=== PATIENT | female | born 1975 | race Caucasian/White ===

== ENCOUNTER 2023-04-07 16:36 | Emergency (ER) | payer BC, SELFPAY ==
[2023-04-07 16:43] VITALS: BP 142/85; PULSE 96; RESP 18; TEMP 36.3; O2SAT 100; BMI 29.2
--- NOTE | 2023-04-07 17:15 | ED.GENADULT ---
HPI - General Adult General Chief complaint: Flank Pain Stated complaint: kidney stone Time Seen by Provider: 04/07/23 16:45 History of Present Illness HPI narrative: Patient states she has LLQ and Left flank pain starting at about 1615 today. Patient has had recent ultra sound showing kidney stones being present. States she has had no issues urinating 47 year old woman presenting to the emergency department complaint of left flank pain and a burning new left inguinal area pain. Not particularly exacerbated with movement. Notes 1st diagnosis of renal stones was in 2020. In my questioning it seems that she is indicating that she has had a 4 mm and a 6 mm ureteral stone present since that time. Unclear when last CT imaging was done. Had brief fever couple days ago. Began to have left flank flank but then left low burning pelvic pain started later this afternoon. She does present with some ultrasounds that were apparently ordered during a regular ?checkup? to evaluate right flank pain. Reviewing these ultrasound work sheets and radiology over-read these note bilateral renal caliceal tip calculi noted at 0.4 cm and 0.6 cm on the left. These were done on 03/21/23 Tends to treat with essence oils. Just wants to get checked out now is heading to [place] in a week. Related Data Home Medications Medication Instructions Recorded Confirmed tamsulosin 0.4 mg capsule (Flomax) 0.4 mg PO .prn 10/02/22 10/02/22 Allergies Allergy/AdvReac Type Severity Reaction Status Date / Time Tetracyclines Allergy Intermediate Hives Verified 10/02/22 09:19 Review of Systems Status of ROS: Reports: 6 or more systems reviewed and unremarkable except as noted in History and below [facility] Medical History History of abnormal cervical Pap smear (06/28/20) ?Z87.42 - Personal history of other diseases of the female genital tract (ICD-10) History of renal calculi (2020) ?Z87.442 - Personal history of urinary calculi (ICD-10) Surgical History History of colposcopy ?Z98.890 - Other specified postprocedural states (ICD-10) History of laparoscopy (1994) ?Z98.890 - Other specified postprocedural states (ICD-10) History of appendectomy (03/18/21) ?Z90.49 - Acquired absence of other specified parts of digestive tract (ICD-10) Family History Maternal Grandfather Cardiovascular disease Maternal Grandmother High blood pressure Aunt Thyroid disease Paternal Grandfather Prostate cancer Mother High blood pressure Brother High blood pressure Family/Other Alcohol dependence Exam Narrative: Exam Narrative: She is pleasant. Of positive energy. Breathing easily. Transitioning without difficulty. Skin is warm and dry without evidence of trauma or rash. Extremities are well perfused and without edema. It does not appear that flexion of the left thigh exacerbates pain. Heart in elevated rate but regular rhythm without murmur rub or gallop. Lungs are clear. Abdomen is soft and not particularly tender; mildly uncomfortable to left flank percussion. Not clearly with inguinal area discomfort. Const: Vital Signs, click to edit/add: Vital Signs - 24 hr 04/07/23 16:43 Temperature 97.3 F L Pulse Rate [Right Pulse Oximeter] 96 Respiratory Rate 18 Blood Pressure [Ri ght Upper Arm] 142/85 H Pulse Oximetry 100 Oxygen Delivery Me thod Room Air Documenting provider has reviewed patient's vital signs: yes Course Vital Signs Vital signs: Initial Vital Signs Temperature 97.3 F L 04/07/23 16:43 Temperature Source Temporal Artery Scan 04/07/23 16:43 Pulse Rate 96 04/07/23 16:43 Pulse Rhythm Regular 04/07/23 16:43 Pulse Strength 3+ Normal 04/07/23 16:43 Respiratory Rate 18 04/07/23 16:43 Blood Pressure 142/85 H 04/07/23 16:43 Blood Pressure Mean 104 04/07/23 16:43 Blood Pressure Position Sitting 04/07/23 16:43 Pulse Oximetry 100 04/07/23 16:43 Oxygen Delivery Method Room Air 04/07/23 16:43 Vital Signs Temperature 97.3 F L 04/07/23 16:43 Pulse Rate 96 04/07/23 16:43 Respiratory Rate 18 04/07/23 16:43 Blood Pressure 142/85 H 04/07/23 16:43 Pulse Oximetry 100 04/07/23 16:43 Oxygen Delivery Method Room Air 04/07/23 16:43 Temperature 97.3 F L 04/07/23 16:43 Pulse Rate 96 04/07/23 16:43 Respiratory Rate 18 04/07/23 16:43 Blood Pressure 142/85 H 04/07/23 16:43 Pulse Oximetry 100 04/07/23 16:43 Oxygen Delivery Method Room Air 04/07/23 16:43 Medical Decision Making MDM Narrative Medical decision making narrative: Initially somewhat puzzling picture to me. If however she does have retained ureteral stones certainly would be quite concerned about evolution of infection with an impacted stone. Does not have symptoms though I think consistent with this. Would evaluate for urinary tract infection and I think at this time will need to do imaging with CT of abdomen and pelvis. In differential also is unrelated flexor strain although not reproducible in this way. Could be other adnexal issue like leaking ovarian cyst. Does not have torsion level discomfort. Radicular symptoms from the back? She does not feel that she needs any interventions/medications at this time. Labs are reassuring with normal white count and renal function. Urinalysis looks concentrated with trace leukocyte esterase and trace lysed blood but otherwise unremarkable. Does not look to have infection here. CT abdomen and pelvis reviewed by me I can appreciate some small intrarenal stones. No perinephric stranding. No masses that I can determine and no hydronephrosis. Radiology over-read as below Study:?CT Abdomen/Pelvis W/O-04/07/2023 6:06:37 PM Ordering Physician:KALI Final Report: INDICATION: Ureteral stones. TECHNIQUE: CT abdomen and pelvis without contrast. COMPARISON: None. FINDINGS: Lower chest: Unremarkable. Liver: Normal in size and attenuation. No suspicious masses. Gallbladder and bile ducts: No stones or inflammation. No biliary dilatation. Pancreas: Unremarkable. No mass or inflammation. Spleen: Normal in size. No masses. Adrenal glands: Normal in size. No nodules. Kidneys: Few bilateral punctate nonobstructing nephroliths. No hydronephrosis.. GI tract: Unremarkable. Normal in caliber. No sign of mass or inflammation. Prior appendectomy. Vasculature: Abdominal aorta is normal in caliber. Lymph nodes: No lymphadenopathy. Peritoneum/Abdominal Wall: Unremarkable. No sign of mass or infiltration. No free air or significant free fluid. Pelvis: Unremarkable. No pelvic masses. Bones: Unremarkable for age. IMPRESSION: Few bilateral punctate nonobstructing nephroliths. No ureterolith identified. No evidence for obstructive uropathy Overall well. Labs as noted reassuring. Unclear nature to the burning discomfort that she has had at this time. Discomfort has also spontaneously resolved. Otherwise appears reassured. See patient discharge plan Lab Data Lab results reviewed: Yes I reviewed the patient's lab results Labs: Lab Results 04/07/23 04/07/23 04/07/23 Range/Units 17:34 Unknown Unknown WBC 5.72 (4.50-11.00) K/uL RBC 4.46 (4.00-5.20) m/uL Hgb 12.9 (12.0-16.0) gm/dL Hct 39.4 (33.0-51.0) % MCV 88 (80-100) fL MCH 29 (26-34) pg MCHC 33 (32-36) gm/dL RDW Coeff of Alok 11.9 (11.5-15.5) % Plt Count 142 (140-440) K/uL Neut % (Auto) 63.6 (42.0-72.0) % Lymph % (Auto) 29.5 (20-44) % Sandoval % (Auto) 5.6 (0.0-11.0) % Eos % (Auto) 0.9 (0.0-7.0) % Baso % (Auto) 0.2 (0.0-3.0) % Neut # (Auto) 3.64 (1.7-7.0) K/uL Lymph # (Auto) 1.69 (0.90-2.90) K/uL [place] # (Auto) 0.30 (0.00-0.90) K/UL Eos # (Auto) 0.05 (0.00-0.50) K/uL Baso # (Auto) 0.01 (0.00-0.30) K/uL Abs Immat Gran (auto) 0.01 (0.00-0.30) K/uL Imm/Tot Granulo (auto) 0.2 % Sodium 138 (135-149) mmol/L Potassium 3.9 (3.6-5.1) mmol/L Chloride 103 (96-114) mmol/L Carbon Dioxide 24 (20-32) mmol/L Anion Gap 11 (7-15) mEq/L BUN 15 (5-24) mg/dL Creatinine 0.8 (0.5-1.5) mg/dL Estimated Creat Clear 74.26 Estimated GFR 91 ml/min Glucose 98 (60-115) mg/dL Calcium 9.6 (8.4-10.6) mg/dL C-Reactive Protein < 0.5 L (0.5-1.0) mg/dL Urine Color Yellow Cancelled (Yellow) Urine Appearance Clear (Clear) Urine pH (5.0-8.5) Ur Specific [employer] (1.000-1.030) Urine Protein (Negative) Urine Glucose (UA) (Negative) Urine Ketones (Negative) Urine Blood (Negative) Urine Nitrite (Negative) Urine Bilirubin (Negative) Urine Urobilinogen (0.2-1.0) Ur Leukocyte Esterase (Negative) Urine RBC (0-2) Urine WBC (0-5) Urine WBC Clumps Ur Squamous Epith Cells (None-Few) Samm Biurate Crystals Calcium Carbonate Cryst Calcium Phosphate Cryst Calcium Oxalate Crystal Cystine Crystals Uric Acid Crystals Triple Phos Crystals Sulfur Crystals Cholesterol Crystals Tyrosine Crystals Hippuric Acid Crystals Amorphous Sediment Other Sediment Urine Bacteria (None) Fatty Casts Hyaline Casts Fine Granular Casts Coarse Granular Casts Waxy Casts RBC Casts WBC Casts Other Casts Urine Starch Urine Mucus Urine Trichomonas Urine Yeast 04/07/23 04/07/23 04/07/23 Range/Units Unknown Unknown Unknown WBC (4.50-11.00) K/uL RBC (4.00-5.20) m/uL Hgb (12.0-16.0) gm/dL Hct (33.0-51.0) % MCV (80-100) fL MCH (26-34) pg MCHC (32-36) gm/dL RDW Coeff of Alok (11.5-15.5) % Plt Count (140-440) K/uL Neut % (Auto) (42.0-72.0) % Lymph % (Auto) (20-44) % Sandoval % (Auto) (0.0-11.0) % Eos % (Auto) (0.0-7.0) % Baso % (Auto) (0.0-3.0) % Neut # (Auto) (1.7-7.0) K/uL Lymph # (Auto) (0.90-2.90) K/uL [place] # (Auto) (0.00-0.90) K/UL Eos # (Auto) (0.00-0.50) K/uL Baso # (Auto) (0.00-0.30) K/uL Abs Immat Gran (auto) (0.00-0.30) K/uL Imm/Tot Granulo (auto) % Sodium (135-149) mmol/L Potassium (3.6-5.1) mmol/L Chloride (96-114) mmol/L Carbon Dioxide (20-32) mmol/L Anion Gap (7-15) mEq/L BUN (5-24) mg/dL Creatinine (0.5-1.5) mg/dL Estimated Creat Clear Estimated GFR ml/min Glucose (60-115) mg/dL Calcium (8.4-10.6) mg/dL C-Reactive Protein (0.5-1.0) mg/dL Urine Color (Yellow) Urine Appearance Cancelled (Clear) Urine pH 5.5 Cancelled (5.0-8.5) Ur Specific [employer] >= 1.030 Cancelled (1.000-1.030) Urine Protein Negative (Negative) Urine Glucose (UA) (Negative) Urine Ketones (Negative) Urine Blood (Negative) Urine Nitrite (Negative) Urine Bilirubin (Negative) Urine Urobilinogen (0.2-1.0) Ur Leukocyte Esterase (Negative) Urine RBC (0-2) Urine WBC (0-5) Urine WBC Clumps Ur Squamous Epith Cells (None-Few) Samm Biurate Crystals Calcium Carbonate Cryst Calcium Phosphate Cryst Calcium Oxalate Crystal Cystine Crystals Uric Acid Crystals Triple Phos Crystals Sulfur Crystals Cholesterol Crystals Tyrosine Crystals Hippuric Acid Crystals Amorphous Sediment Other Sediment Urine Bacteria (None) Fatty Casts Hyaline Casts Fine Granular Casts Coarse Granular Casts Waxy Casts RBC Casts WBC Casts Other Casts Urine Starch Urine Mucus Urine Trichomonas Urine Yeast 04/07/23 04/07/23 04/07/23 Range/Units Unknown Unknown Unknown WBC (4.50-11.00) K/uL RBC (4.00-5.20) m/uL Hgb (12.0-16.0) gm/dL Hct (33.0-51.0) % MCV (80-100) fL MCH (26-34) pg MCHC (32-36) gm/dL RDW Coeff of Alok (11.5-15.5) % Plt Count (140-440) K/uL Neut % (Auto) (42.0-72.0) % Lymph % (Auto) (20-44) % [place] % (Auto) (0.0-11.0) % Eos % (Auto) (0.0-7.0) % Baso % (Auto) (0.0-3.0) % Neut # (Auto) (1.7-7.0) K/uL Lymph # (Auto) (0.90-2.90) K/uL [place] # (Auto) (0.00-0.90) K/UL Eos # (Auto) (0.00-0.50) K/uL Baso # (Auto) (0.00-0.30) K/uL Abs Immat Gran (auto) (0.00-0.30) K/uL Imm/Tot Granulo (auto) % Sodium (135-149) mmol/L Potassium (3.6-5.1) mmol/L Chloride (96-114) mmol/L Carbon Dioxide (20-32) mmol/L Anion Gap (7-15) mEq/L BUN (5-24) mg/dL Creatinine (0.5-1.5) mg/dL Estimated Creat Clear Estimated GFR ml/min Glucose (60-115) mg/dL Calcium (8.4-10.6) mg/dL C-Reactive Protein (0.5-1.0) mg/dL Urine Color (Yellow) Urine Appearance (Clear) Urine pH (5.0-8.5) Ur Specific [employer] (1.000-1.030) Urine Protein Cancelled (Negative) Urine Glucose (UA) Negative Cancelled (Negative) Urine Ketones Negative Cancelled (Negative) Urine Blood Trace-lysed A (Negative) Urine Nitrite (Negative) Urine Bilirubin (Negative) Urine Urobilinogen (0.2-1.0) Ur Leukocyte Esterase (Negative) Urine RBC (0-2) Urine WBC (0-5) Urine WBC Clumps Ur Squamous Epith Cells (None-Few) [place] Biurate Crystals Calcium Carbonate Cryst Calcium Phosphate Cryst Calcium Oxalate Crystal Cystine Crystals Uric Acid Crystals Triple Phos Crystals Sulfur Crystals Cholesterol Crystals Tyrosine Crystals Hippuric Acid Crystals Amorphous Sediment Other Sediment Urine Bacteria (None) Fatty Casts Hyaline Casts Fine Granular Casts Coarse Granular Casts Waxy Casts RBC Casts WBC Casts Other Casts Urine Starch Urine Mucus Urine Trichomonas Urine Yeast 04/07/23 04/07/23 04/07/23 Range/Units Unknown Unknown Unknown WBC (4.50-11.00) K/uL RBC (4.00-5.20) m/uL Hgb (12.0-16.0) gm/dL Hct (33.0-51.0) % MCV (80-100) fL MCH (26-34) pg MCHC (32-36) gm/dL RDW Coeff of Alok (11.5-15.5) % Plt Count (140-440) K/uL Neut % (Auto) (42.0-72.0) % Lymph % (Auto) (20-44) % [place] % (Auto) (0.0-11.0) % Eos % (Auto) (0.0-7.0) % Baso % (Auto) (0.0-3.0) % Neut # (Auto) (1.7-7.0) K/uL Lymph # (Auto) (0.90-2.90) K/uL [place] # (Auto) (0.00-0.90) K/UL Eos # (Auto) (0.00-0.50) K/uL Baso # (Auto) (0.00-0.30) K/uL Abs Immat Gran (auto) (0.00-0.30) K/uL Imm/Tot Granulo (auto) % Sodium (135-149) mmol/L Potassium (3.6-5.1) mmol/L Chloride (96-114) mmol/L Carbon Dioxide (20-32) mmol/L Anion Gap (7-15) mEq/L BUN (5-24) mg/dL Creatinine (0.5-1.5) mg/dL Estimated Creat Clear Estimated GFR ml/min Glucose (60-115) mg/dL Calcium (8.4-10.6) mg/dL C-Reactive Protein (0.5-1.0) mg/dL Urine Color (Yellow) Urine Appearance (Clear) Urine pH (5.0-8.5) Ur Specific [employer] (1.000-1.030) Urine Protein (Negative) Urine Glucose (UA) (Negative) Urine Ketones (Negative) Urine Blood Cancelled (Negative) Urine Nitrite Negative Cancelled (Negative) Urine Bilirubin Negative Cancelled (Negative) Urine Urobilinogen 0.2 (0.2-1.0) Ur Leukocyte Esterase (Negative) Urine RBC (0-2) Urine WBC (0-5) Urine WBC Clumps Ur Squamous Epith Cells (None-Few) Samm Biurate Crystals Calcium Carbonate Cryst Calcium Phosphate Cryst Calcium Oxalate Crystal Cystine Crystals Uric Acid Crystals Triple Phos Crystals Sulfur Crystals Cholesterol Crystals Tyrosine Crystals Hippuric Acid Crystals Amorphous Sediment Other Sediment Urine Bacteria (None) Fatty Casts Hyaline Casts Fine Granular Casts Coarse Granular Casts Waxy Casts RBC Casts WBC Casts Other Casts Urine Starch Urine Mucus Urine Trichomonas Urine Yeast 04/07/23 04/07/23 04/07/23 Range/Units Unknown Unknown Unknown WBC (4.50-11.00) K/uL RBC (4.00-5.20) m/uL Hgb (12.0-16.0) gm/dL Hct (33.0-51.0) % MCV (80-100) fL MCH (26-34) pg MCHC (32-36) gm/dL RDW Coeff of Alok (11.5-15.5) % Plt Count (140-440) K/uL Neut % (Auto) (42.0-72.0) % Lymph % (Auto) (20-44) % [place] % (Auto) (0.0-11.0) % Eos % (Auto) (0.0-7.0) % Baso % (Auto) (0.0-3.0) % Neut # (Auto) (1.7-7.0) K/uL Lymph # (Auto) (0.90-2.90) K/uL [place] # (Auto) (0.00-0.90) K/UL Eos # (Auto) (0.00-0.50) K/uL Baso # (Auto) (0.00-0.30) K/uL Abs Immat Gran (auto) (0.00-0.30) K/uL Imm/Tot Granulo (auto) % Sodium (135-149) mmol/L Potassium (3.6-5.1) mmol/L Chloride (96-114) mmol/L Carbon Dioxide (20-32) mmol/L Anion Gap (7-15) mEq/L BUN (5-24) mg/dL Creatinine (0.5-1.5) mg/dL Estimated Creat Clear Estimated GFR ml/min Glucose (60-115) mg/dL Calcium (8.4-10.6) mg/dL C-Reactive Protein (0.5-1.0) mg/dL Urine Color (Yellow) Urine Appearance (Clear) Urine pH (5.0-8.5) Ur Specific [employer] (1.000-1.030) Urine Protein (Negative) Urine Glucose (UA) (Negative) Urine Ketones (Negative) Urine Blood (Negative) Urine Nitrite (Negative) Urine Bilirubin (Negative) Urine Urobilinogen Cancelled (0.2-1.0) Ur Leukocyte Esterase Trace A Cancelled (Negative) Urine RBC 0-2 Cancelled (0-2) Urine WBC 0-2 (0-5) Urine WBC Clumps Ur Squamous Epith Cells (None-Few) Samm Biurate Crystals Calcium Carbonate Cryst Calcium Phosphate Cryst Calcium Oxalate Crystal Cystine Crystals Uric Acid Crystals Triple Phos Crystals Sulfur Crystals Cholesterol Crystals Tyrosine Crystals Hippuric Acid Crystals Amorphous Sediment Other Sediment Urine Bacteria (None) Fatty Casts Hyaline Casts Fine Granular Casts Coarse Granular Casts Waxy Casts RBC Casts WBC Casts Other Casts Urine Starch Urine Mucus Urine Trichomonas Urine Yeast 04/07/23 04/07/23 04/07/23 Range/Units Unknown Unknown Unknown WBC (4.50-11.00) K/uL RBC (4.00-5.20) m/uL Hgb (12.0-16.0) gm/dL Hct (33.0-51.0) % MCV (80-100) fL MCH (26-34) pg MCHC (32-36) gm/dL RDW Coeff of Alok (11.5-15.5) % Plt Count (140-440) K/uL Neut % (Auto) (42.0-72.0) % Lymph % (Auto) (20-44) % [place] % (Auto) (0.0-11.0) % Eos % (Auto) (0.0-7.0) % Baso % (Auto) (0.0-3.0) % Neut # (Auto) (1.7-7.0) K/uL Lymph # (Auto) (0.90-2.90) K/uL [place] # (Auto) (0.00-0.90) K/UL Eos # (Auto) (0.00-0.50) K/uL Baso # (Auto) (0.00-0.30) K/uL Abs Immat Gran (auto) (0.00-0.30) K/uL Imm/Tot Granulo (auto) % Sodium (135-149) mmol/L Potassium (3.6-5.1) mmol/L Chloride (96-114) mmol/L Carbon Dioxide (20-32) mmol/L Anion Gap (7-15) mEq/L BUN (5-24) mg/dL Creatinine (0.5-1.5) mg/dL Estimated Creat Clear Estimated GFR ml/min Glucose (60-115) mg/dL Calcium (8.4-10.6) mg/dL C-Reactive Protein (0.5-1.0) mg/dL Urine Color (Yellow) Urine Appearance (Clear) Urine pH (5.0-8.5) Ur Specific [employer] (1.000-1.030) Urine Protein (Negative) Urine Glucose (UA) (Negative) Urine Ketones (Negative) Urine Blood (Negative) Urine Nitrite (Negative) Urine Bilirubin (Negative) Urine Urobilinogen (0.2-1.0) Ur Leukocyte Esterase (Negative) Urine RBC (0-2) Urine WBC Cancelled (0-5) Urine WBC Clumps Cancelled Ur Squamous Epith Cells Few Cancelled (None-Few) Samm Biurate Crystals Cancelled Calcium Carbonate Cryst Cancelled Calcium Phosphate Cryst Cancelled Calcium Oxalate Crystal Cancelled Cystine Crystals Cancelled Uric Acid Crystals Cancelled Triple Phos Crystals Cancelled Sulfur Crystals Cancelled Cholesterol Crystals Cancelled Tyrosine Crystals Cancelled Hippuric Acid Crystals Cancelled Amorphous Sediment Cancelled Other Sediment Cancelled Urine Bacteria None Cancelled (None) Fatty Casts Cancelled Hyaline Casts Cancelled Fine Granular Casts Cancelled Coarse Granular Casts Cancelled Waxy Casts Cancelled RBC Casts Cancelled WBC Casts Cancelled Other Casts Cancelled Urine Starch Cancelled Urine Mucus Cancelled Urine Trichomonas Cancelled Urine Yeast Cancelled Discharge Plan Discharge Clinical Impression: Flank pain, Nephrolithiasis Patient Disposition: Home, Self-Care Condition: Improved Additional Instructions: I am happy to hear your pain is improved. Return for repeated vomiting, uncontrolled pain, associated fever. Otherwise have an awesome time in [place]. Prescriptions: No Action tamsulosin [Flomax] 0.4 mg capsule 0.4 mg PO .prn Follow Up/Referrals: Provider,Not a Local [Primary Care Provider] - Stand Alone Forms: Business Lab Info Instructions
--- OUTSIDE RECORDS SUMMARY | 2023-04-07 17:21 | XMS_ITS | Data Portability ---
Author Name Unknown Address [address] [place] [address] Phone [phone] Organization [facility] Address [address] [place] [address] Assessment Encounter Date Assessment Date Assessment LastModified by Organization Details LastModified Time 09/04/2022 09/04/2022 47-year-old female with history of flank plain and kidney stone presents for the treatment and evaluation of kidney stones. [email or web address] Not available 09/03/2022 17:13:05 Plan of Treatment Reminders Order Date Submit Date Provider Last Modified By Organization Details Last Modified Time Details Appointments ESTABLISH ED 20 2023 08:40A M Eileen Lira PA-C Not available Not available Not available Lab urinalysi s, dipstick 2022 023 [facility], [address], [place], [address], 09/04/2022 11:24:54 Referral None recorded. Procedures None recorded. Surgeries None recorded. Imaging US, kidney - h/o kidney stones 2022 024 [facility], [address] [place], [address], 03/21/2023 19:12:15 Medication Orders None recorded. Patient TargetsNo targets recorded. Patient Instructions Encounter Date Encounter Id Patient Instructions Last Modified By Organization Details Last Modified Time 09/04/2022 [id number] -47-year-old female with history of kidney stones. Most recent CT did show 1 to 2 mm nonobstructing stone in the midpole of the right kidney. Currently symptoms are stable.. She has had previous kidney stones and has been able to pass them with the assistance of Flomax. Flomax was prescribed by PCP. Advised patient to not take it added on a regular basis and unlikely that it may help pass her current stone. Stone prevention discussed including: -Increase fluids 32-40 ounces three times a day -Increase citric fruits-follow handout -Decrease sodium-<2000mg per day -Reduce intake of foods with high purine content including meat, fish and among others. Follow in 6 months with [facility] prior [email or web address] Not available 09/04/2022 11:01:15 Reason for Referral None Reported. Results Created Date Observation Date Name Description Value Unit Range Abnormal Flag LastModifiedBy Organization Detail LastModifiedTime 09/05/19 23 09/04/2022 UA WITHO UT MICRO - CS URISC AN blood - uriscan negati ve negati ve Not Available [facility] [address], [place], [address], 09/04/2022 11:24:53 09/05/19 23 09/04/2022 UA WITHO UT MICRO - CS URISC AN bilirubin - uriscan negati ve mg/dL negati ve Not Available [facility] [address] [address], [place], [address], 09/04/2022 11:24:53 09/05/19 23 09/04/2022 UA WITHO UT MICRO - CS URISC AN urobilinogen - uriscan normal mg/dL normal Not Available [facility] [address] [facility] [address], [place], [address], 09/04/2022 11:24:53 09/05/19 23 09/04/2022 UA WITHO UT MICRO - CS URISC AN ketones - uriscan negati ve mg/dL negati ve Not Available [facility] [address] [facility] [address], [place], [address], 09/04/2022 11:24:53 09/05/19 23 09/04/2022 UA WITHO UT MICRO - CS URISC AN protein - uriscan negati ve mg/dL negati ve Not Available [facility] [address], [place], [address], 09/04/2022 11:24:53 09/05/19 23 09/04/2022 UA WITHO UT MICRO - CS URISC AN nitrites - uriscan negati ve negati ve Not Available [facility] [address] [place] [address] [address], [place], [address], 09/04/2022 11:24:53 09/05/19 23 09/04/2022 UA WITHO UT MICRO - CS URISC AN glucose - uriscan negati ve mg/dL negati ve Not Available [facility] [address] [place] [address] [address], [place], [address], 09/04/2022 11:24:53 09/05/19 23 09/04/2022 UA WITHO UT MICRO - CS URISC AN pH - uriscan 5.00 5.00-9 .00 Not Available [facility] [address] [place] [address] [address], [place], [address], 09/04/2022 11:24:53 09/05/19 23 09/04/2022 UA WITHO UT MICRO - CS URISC AN sp. gravity - uriscan 1.03 1.01-1 .03 Not Available [facility] [address] [place] [address] [address], [place], [address], 09/04/2022 11:24:53 09/05/19 23 09/04/2022 UA WITHO UT MICRO - CS URISC AN leukocytes - uriscan negati ve negati ve Not Available [facility] [address] [place] [address] [address], [place], [address], 09/04/2022 11:24:53 09/05/19 23 09/04/2022 UA WITHO UT MICRO - CS URISC AN color - uriscan yellow lt. yellow ;briseida w Not Available [facility] [address] [facility] [address] [facility] [address] [facility] [address], [place], [address], 09/04/2022 11:24:53 09/05/19 23 09/04/2022 UA WITHO UT MICRO - CS URISC AN clarity - uriscan clear clear Not Available [facility] [address] [facility] [address] [facility] [address] [facility] [address], [place], [address], 09/04/2022 11:24:53 09/05/19 23 09/04/2022 UA WITHO UT MICRO - CS URISC AN total urine volume (mL) 110 /mL Not Available [facility] [address] [facility] [address] [facility] [address], [place], [address], 09/04/2022 11:24:53 08/28/19 23 03/17/2022 CT, abdom en + pelvi s, w/o contr ast No observ ation record ed. [email or web address] Not Available 08/27/2022 09:02:54 08/28/19 23 01/24/2021 CT, abdom en + pelvi s, w/o contr ast No observ ation record ed. [email or web address] Not Available 08/27/2022 09:02:54 03/21/19 24 03/21/2023 US, kidne y No observ ation record ed. [facility] [address], [place], [address], 03/23/2023 11:57:54 Result Notes None recorded. Problems No Known Problems Procedures Surgical History Date Name Laterality Status Provider Name and Address Organization Details Recorded Time appendectomy completed DWAYNE Busby - [facility] 09/04/2022 10:47:38 Imaging Results Imaging Date Name Status [facility]Modified by [facility] Details LastModified Time 03/17/2022 CT, abdomen + pelvis, w/o contrast completed Information not available 08/27/2022 09:02:54 01/24/2021 CT, abdomen + pelvis, w/o contrast completed Information not available 08/27/2022 09:02:54 03/21/2023 US, kidney completed [facility] [address] [place] [address], [place], [address], 03/23/2023 11:57:54 Procedure Notes None recorded. Medical Equipment None Reported. Allergies Allergen ID Allergen Name Allergen Category Reaction Reaction Severity Criticality Documentation Date Start Date Code Code System Note Provider Name and Address Organization Details Recorded Time 124823 tetracycl ine medicatio n itching Not available Not available 09/01/2022 50311 RxNorm Not Available Health Note 17:33:13 Medications Name Sig Start Date Stop Date Status Note LastModified by Organization Details LastModified Time tamsulosin 0.4 mg capsule Take 1 capsule every day by oral route for 14 days, for Kidney stone. 024 active Not Available Not Available Not Avai lable Vitals Date Recorded Body mass index (BMI) Body weight Body height Provider Name and Address Organization Details Last Updated DateTime 09/04/2022 29.2 kg/m2 82430.06501 13633 g 162.56 cm Not Available Health Note 09/04/2022 10:28:29 Social History Question Answer Notes LastModified by Organizat ion Details LastModified Time Tobacco Smoking Status Never Smoker Not Available Health Note 09/01/2022 17:33:14 What Is Your Level Of Alcohol Consumption? Occasional [email or web address] Information not available 09/01/2022 What Is Your Level Of Caffeine Consumption? Occasional [email or web address] Information not available 09/01/2022 How Much Tobacco Do You Chew? None [email or web address] Information not available 09/01/2022 Do You Or Have You Ever Used E-cigarettes Or Vape? Never Used Electronic Cigarettes [email or web address] Information not available 09/01/2022 Race Na Information not available 09/04/2022 Preferred Language Greek Information not available 09/04/2022 What Was The Date Of Your Most Recent Tobacco Screening? 09/04/2022 [email or web address] Information not available 09/01/2022 What Is Your Relationship Status? Single [email or web address] Information not available 09/01/2022 Are You Sexually Active? Yes [email or web address] Information not available 09/01/2022 Do You Or Have You Ever Used Smokeless Tobacco? Never Used Smokeless Tobacco [email or web address] Information not available 09/01/2022 Do You Use Any Illicit Or Recreational Drugs? No [email or web address] Information not available 09/01/2022 How Many Days In The Past Year Have You Consumed 4 Or More Drinks? 2 [email or web address] Information no t available 09/01/2022 Sex: Female Functional Status None recorded. Mental Status None recorded. Family History Relationship Description Onset Age of this Age Resolved Age Notes Father No current problems or disability Mother No current problems or disability Medical History Condition Response Sexually Transmitted Infection N Diabetes N Other N Bleeding Disorder N High Blood Pressure N Kidney Stones Y Cancer N Depression N Lung Disease N High Cholesterol N GERD/Acid Reflux N Heart Disease N Gynecological History Statement/Question Response Irregular periods Y Leaking urine with intercourse N Heavy periods Y Sexually Active? Y Pain with intercourse Y Obstetrics History GPAL:G 0 P 0 0 0 0 Immunizations Vaccine Type Date Status Provider Name and Address Organization Details Recorded Time SARS-COV-2 (COVID-19) vaccine, UNSPECIFIED 01/17/2021 completed Erika collins [facility] 09/04/2022 10:30:08 COVID-19, mRNA, LNP-S, PF, 100 mcg/0.5mL dose or 50 mcg/0.25mL dose 01/17/2021 completed Erika collins [facility] 09/04/2022 10:30:08 COVID-19, mRNA, LNP-S, PF, 30 mcg/0.3 mL dose 06/01/2020 fatoumata collins [facility] 09/04/2022 10:30:08 COVID-19, mRNA, LNP-S, PF, 30 mcg/0.3 mL dose 06/22/2020 completed Erika collins [facility] 09/04/2022 10:30:08 Past Encounters Encounter ID Performer Location Encounter Start Date Encounter Closed Date Diagnosis/Indication [id number] Eileen Lira PA-C [address] [place] [id number] 09/04/2022 10:27:05 09/04/2022 11:03:46 Kidney stone Health Concerns Section Related Observation LastModified by Organization Detai ls LastModified Time None Recorded Concern Status LastModified by Organization Details LastModified Time None Recorded Advance Directives Directive None Recorded Payers Encounter Date Sequence Insurance Name Policy Number Policy Garcia Covered Member ID Garcia Member ID Guarantor Name 09/04/2022 1 [facility] [id number] Bria Coronado [id number] Bria Coronado Notes Date Note Type Note Provider Name and Address Organization Details Recorded Time 09/04/2022 text/html HPI Notes: 47-year-old female with history of flank plain and kidney stone presents for the treatment and evaluation of kidney stones. In 2020 she was found to have kidney stones while she was admitted in the ER for appendicitis. CT at the time showed 2-3 tiny punctate stones bilaterally. She claims that she has passed 1 or 2 stones. Since then symptoms have been stable until February 2022. She started to develop flank pain.CT done on 03/10/2022 showed 1 to 2 mm nonobstructing stone in the midpole of the right calyx posteriorly. she has been taking Flomax and seems like it has been helping. She initially was taking higher dose calcium supplements but has since stopped them. There is family history of nephrolithiasis-[facility] er (7mm) stone Eileen Lira PA-C [address], [place], [address], [facility] 09/04/2022 11:01:26 OBGyn Episode No OBEpisode recorded.
--- OUTSIDE RECORDS SUMMARY | 2023-04-07 17:21 | XMS_ITS | Clinical Summary ---
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 30 Capsule 1 07/21/2022 Active Active Problems Problem Noted Date Diagnosed Date LGSIL of cervix of undetermined significance 01/2023 Overview: 06/2020 LSIL/HPV+ 07/2020 [place]: benign 06/2021 NIL/HPV negative 07/2022 LSIL/HPV negative Plan: Pap and HPV due in 1 year. 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 Ancillary Procedure [facility] [address], [place] [id number] 03/21/2023 Travel from Last 3 Months Immunizations Name Administration Dates Next Due COVID-19 vaccine (Moderna Booster 50mcg/0.25mL) JACQUIE LEUNG 01/17/2021 Family History Medical History Relation Name Comments No Known Problems Father No Known Problems Mother Anesthesia Problem No Family History Blood Disease No Family History Cancer-breast No Family History Clotting disorder No Family History Relation Name Status Comments Father Alive Mother Alive Social History Tobacco Use Types Packs/Day Years Used Date Smoking Tobacco: Never Smokeless Tobacco: Never Alcohol Use Standard Drinks/Week Comments Yes 0 (1 standard drink = 0.6 oz pure alcohol) Once a month; 1-2 drinks at a time PHQ-2 Answer Date Recorded PHQ-2 Score 0 04/19/2018 Social Connections Answer Date Recorded Frequency of Communication with Friends and Fami ly Not on file 03/13/2023 Financial Resource Strain Answer Date R ecorded Difficulty of Paying Living Expenses 3 03/12/2022 Difficulty of Paying Living Expenses Not on file 03/12/2022 Food Insecurity Answer Date Recorded Worried About Running Out of Food in the Last Ye ar 1 03/12/2022 Transportation Needs Answer Date Record ed Lack of Transportation (Medical) 1 03/12/2022 Housing Stability Answer Date Recorded Unable to Pay for Housing in the Last Year 1 03/12/2022 Sex and Gender Information Value Date Recorded Sex Assigned at Not on file Gender Identity Not on file Sexual Orientation Not on file Obstetrics History Last Filed Vital Signs Vital Sign Reading Time Taken Comments Blood Pressure 120/64 07/21/2022 9:45 AM CDT Pulse 79 07/21/2022 9:45 AM CDT Temperature 36.7 ??C (98 ??F) 04/02/2021 4:09 PM STEEL WORKER Respiratory Rate 16 04/02/2021 4:09 PM STEEL WORKER Oxygen Saturation 100% 07/21/2022 9:45 AM CDT Inhaled Oxygen Concentration - - Weight 78 kg (172 lb) 07/21/2022 9:45 AM CDT Height 162.6 cm (5' 4.02) 07/21/2022 9:45 AM CD T Body Mass Index 29.51 07/21/2022 9:45 AM CDT Plan of Treatment Health Maintenance Due Date Last Done Comments Tdap 1985 HIV for age 15-65 1989 Hepatitis C screening for age 18-79 1992 Tetanus booster 1994 Depression screening for age 12+ 08/12/2018 08/12/2017 Lipids for age 45-75 08/17/2019 Mammogram for age 45-75 08/17/2019 02/25/2010, 09/24 COVID-19 vaccine series ( season) 2022 01/17/2021, 06/22/2020, 06/01/2020 Influenza for age 9-49 10/17/2022 BMI (ht and wt on same day) for age 18+ 07/22/2023 07/21/2022, 03/13/2022, 03/11/2021, Additional history exists Pap test for age 21-65 07/22/2023 , 07/21/2022, 07/12/2021, Additional history exists Fecal testing sDNA-FIT (Cologuard) for age 45-75 03/19/2025 03/19/2022 Pneumococcal series for age 6-64 Aged Out No longer eligible based on patient's age to complete this topic Procedures Procedure Name Priority Date/Time Associated Diagnosis Comments US RENAL BILATERAL Routine 03/21/2023 10 :48 AM STEEL WORKER Calculus of kidney from Last 3 Months Results * US RENAL BILATERAL (03/21/2023 10:48 AM STEEL WORKER) Anatomical Region Laterality Modality Abdomen, KIDNEYS Ultrasound 03/21/2023 10:4 8 AM STEEL WORKER Impressions 03/21/2023 12:56 PM STEEL WORKER 1. ??Bilateral renal calyceal tip calculi measuring up to 0.4 cm on the right and 0.6 cm on the left. 2. ??No hydronephrosis. Narrative 03/21/2023 12:56 PM STEEL WORKER For Patients: As a result of the Century Cures Act, medical imaging exams and procedure reports are released immediately into your electronic medical record. You may view this report before your referring provider. If you have questions, please contact your health care provider. EXAM: US RENAL BILATERAL LOCATION: [facility] DATE: 03/21/2023 INDICATION: Calculus Of Kidney COMPARISON: CT 03/17/2022. TECHNIQUE: Routine Bilateral Renal and Bladder Ultrasound. FINDINGS: RIGHT KIDNEY: 8.8 x 4.3 x 4.5 cm. Hyperechoic calyceal tip foci with twinkle measuring up to 0.4 cm in the midpole and 0.4 cm in the lower pole. No hydronephrosis. LEFT KIDNEY: 10.1 x 5.1 x 5.8 cm. Hyperechoic calyceal tip foci with twinkle artifact in the lower pole measuring up to 0.6 cm. No hydronephrosis. BLADDER: Unremarkable. Procedure Note Thomas Vasquez MD - 03/21/2023 For Patients: As a result of the Cures Act, medical imagingexams and procedure reports are released immediately into your electronicmedical record. You may view this report before your referring provider.If you have questions, please contact your health care provider. EXAM: US RENAL BILATERAL LOCATION: [facility] DATE: 03/21/2023 INDICATION: Calculus Of Kidney COMPARISON: CT 03/17/2022. TECHNIQUE: Routine Bilateral Renal and Bladder Ultrasound. FINDINGS: RIGHT KIDNEY: 8.8 x 4.3 x 4.5 cm. Hyperechoic calyceal tip foci withtwinkle measuring up to 0.4 cm in the midpole and 0.4 cm in the lowerpole. No hydronephrosis. LEFT KIDNEY: 10.1 x 5.1 x 5.8 cm. Hyperechoic calyceal tip foci withtwinkle artifact in the lower pole measuring up to 0.6 cm. Nohydronephrosis. BLADDER: Unremarkable. IMPRESSION: 1. Bilateral renal calyceal tip calculi measuring up to 0.4 cm on theright and 0.6 cm on the left. 2. No hydronephrosis. Eileen ROSSI from Last 3 Months Advance Directives Latest Code Status on File Code Status Date Activated Date Inactivated Comments Full Code 03/15/2021 9:34 AM 03/15/2021 4:28 PM Question Answer Comments Code Status Discussion: Discussed Care Teams Body Maker Machine Setter Relationship Specialty Start Date End Date [facility] PCP - General 05/25/17
--- NOTE | 2023-04-07 17:23 | CT_ITS ---
Final Report Patient: FREEMAN ROBERTSON Facility:?[facility] Patient ID:?[id number] Site Patient ID:?[id number] Site :?[id number] Study:?CT Abdomen/Pelvis W/O-04/07/2023 6:06:37 PM Ordering Physician:KALI Final Report: INDICATION: Ureteral stones. TECHNIQUE: CT abdomen and pelvis without contrast. COMPARISON: None. FINDINGS: Lower chest: Unremarkable. Liver: Normal in size and attenuation. No suspicious masses. Gallbladder and bile ducts: No stones or inflammation. No biliary dilatation. Pancreas: Unremarkable. No mass or inflammation. Spleen: Normal in size. No masses. Adrenal glands: Normal in size. No nodules. Kidneys: Few bilateral punctate nonobstructing nephroliths. No hydronephrosis.. GI tract: Unremarkable. Normal in caliber. No sign of mass or inflammation. Prior appendectomy. Vasculature: Abdominal aorta is normal in caliber. Lymph nodes: No lymphadenopathy. Peritoneum/Abdominal Wall: Unremarkable. No sign of mass or infiltration. No free air or significant free fluid. Pelvis: Unremarkable. No pelvic masses. Bones: Unremarkable for age. IMPRESSION: Few bilateral punctate nonobstructing nephroliths. No ureterolith identified. No evidence for obstructive uropathy Please note that all CT scans at this facility use dose modulation, iterative reconstruction, and/or weight-based dosing when appropriate to reduce radiation dose to as low as reasonably achievable. Dictated by Tony Hernandez MD @ 04/07/2023 6:44:42 PM (Electronic Signature)
[2023-04-07 17:50] LABS: Appearance Urine Clear (Clear); Bilirubin Urine Negative (Negative); Blood Urine Trace-lysed (Negative); Color Urine Yellow (Yellow); Glucose Urine Negative (Negative); Ketones Urine Negative (Negative); Leukocyte Esterase Urine Trace (Negative); Nitrite Urine Negative (Negative); Protein Urine Negative (Negative); Specific Gravity Urine >= 1.030 (1.000-1.030); Urobilinogen Urine 0.2 (0.2-1.0); pH Urine 5.5 (5.0-8.5)
[2023-04-07 17:53] LABS: Basophils Absolute Auto 0.01 K/uL (0.00-0.30); Basophils Percent Auto 0.2 % (0.0-3.0); Eosinophils Absolute Auto 0.05 K/uL (0.00-0.50); Eosinophils Percent Auto 0.9 % (0.0-7.0); Hematocrit 39.4 % (33.0-51.0); Hemoglobin* 12.9 gm/dL (12.0-16.0); Immature Granulocytes Abs Auto 0.01 K/uL (0.00-0.30); Immature Granulocytes Pct Auto 0.2 %; Lymphocytes Absolute Auto 1.69 K/uL (0.90-2.90); Lymphocytes Percent Auto 29.5 % (20-44); Mean Corpuscular HGB Conc 33 gm/dL (32-36); Mean Corpuscular Hemoglobin 29 pg (26-34); Mean Corpuscular Volume 88 fL (80-100); Monocytes Percent Auto 5.6 % (0.0-11.0); Neutrophils Absolute Auto 3.64 K/uL (1.7-7.0); Neutrophils Percent Auto 63.6 % (42.0-72.0); RDW Coefficient of Variation % 11.9 % (11.5-15.5); Red Blood Count 4.46 m/uL (4.00-5.20); White Blood Count* 5.72 K/uL (4.50-11.00)
[2023-04-07 17:56] LABS: Slide Review Reflex No
[2023-04-07 18:10] LABS: Chloride* 103 mmol/L (96-114); Potassium* 3.9 mmol/L (3.6-5.1); Sodium* 138 mmol/L (135-149)
[2023-04-07 18:13] LABS: Creatinine* 0.8 mg/dL (0.5-1.5); Est. Creatinine Clearance* 74.26; Estimated Glomerular Filt Rate 91 ml/min
[2023-04-07 18:14] LABS: Anion Gap 11 mEq/L (7-15); Blood Urea Nitrogen* 15 mg/dL (5-24); Calcium* 9.6 mg/dL (8.4-10.6); Carbon Dioxide* 24 mmol/L (20-32); Glucose* 98 mg/dL (60-115)
[2023-04-07 18:20] LABS: C Reactive Protein* < 0.5 mg/dL (0.5-1.0)
[2023-04-07 18:41] LABS: RBC Urine 0-2 (0-2); Squamous Epithelial Cell Urine Few (None-Few); WBC Urine 0-2 (0-5)
[2023-04-07 20:29] LABS: Platelet Count* 142 K/uL (140-440)
== END 2023-04-07 19:46 | disposition home or self-care (01) ==
PROVIDERS: Emergency Provider Family Medicine
DX: R10.9 Unspecified abdominal pain (principal); N20.0 Calculus of kidney
CPT/HCPCS: 36415; 74176; 80048; 81001; 85025; 86140; 87086; 87186; 99284